=== PATIENT | female | born 1965 | race Caucasian/White ===

== ENCOUNTER → 2021-04-21 | Outpatient (CLI) | payer BC ==
[~2021-04-21] MED LIST: NORCO 5-325 TA1 EACH PO
== END ==
LOC: RAD 12:09
DX: R05.9 Cough, unspecified (principal); R91.1 Solitary pulmonary nodule
CPT/HCPCS: 71046

== ENCOUNTER → 2021-06-11 | Outpatient (CLI) | payer BC | LOC: MAMO 09:52 | DX: Z12.31 Encounter for screening mammogram for malignant neoplasm of breast (principal) | CPT/HCPCS: 77063; 77067 ==

== ENCOUNTER 2021-08-06 13:41 | Emergency (ER) | payer BC ==
[2021-08-06 15:29] LABS: BUN/CREATININE RATIO 21 (0-10)
[2021-08-06 15:33] LABS: HEMOGLOBIN 13.5 gm/dl (12.3-15.3); RED BLOOD COUNT 4.65 M/UL (4.00-5.10); WHITE BLOOD COUNT 11.9 K/UL (4.5-11.0)
== END 2021-08-06 20:45 | disposition home or self-care (01) ==
LOC: ER1 13:41
PROVIDERS: Physician Assistant
DX: I95.9 Hypotension, unspecified (principal); E87.6 Hypokalemia; I10 Essential (primary) hypertension; R55 Syncope and collapse; E11.9 Type 2 diabetes mellitus without complications; F17.290 Nicotine dependence, other tobacco product, uncomplicated
CPT/HCPCS: 71045; 80053; 82550; 82553; 84484; 85025; 96374; 99284; J2405; J7030